=== PATIENT | female | born 1985 | race American Indian/Alaskan Native ===

== ENCOUNTER 2020-09-03 19:15 | Emergency (ER) | payer SELFPAY | END 2020-09-03 19:20 | disposition left against medical advice (07) | LOC: ED 19:15 | DX: R20.0 Anesthesia of skin (principal); M54.9 Dorsalgia, unspecified; M54.2 Cervicalgia; Z53.21 Procedure and treatment not carried out due to patient leaving prior to being seen by health care provider ==